=== PATIENT | male | born 1990 | race Caucasian/White ===

== ENCOUNTER 2020-11-16 17:16 | Emergency (ER) | payer OTHER ==
[2020-11-16 21:02] LABS: BASOPHIL 0.2 % (0-2); EOSINOPHIL 0.3 % (0-5); HCT 44.8 % (42.0-52.0); HGB 14.8 g/dl (13.2-18.0); LYMPHOCYTE 12.4 % (15-48); MCH 30.9 pg (25.0-31.0); MCV 93.5 fL (78.0-100.0); MONOCYTE 8.3 % (0-12); NEUTROPHIL 78.5 % (41-80); NRBC 0; PLT 352 K/uL (150-400); RBC 4.79 M/uL (4.70-6.00); RDW 12.7 % (11.5-14.0); WBC 17.2 K/uL (4.0-10.5)
[2020-11-16 22:26] LABS: BUN/CREAT RATIO (CALC) 9.6 RATIO; CREATININE 0.94 mg/dL (0.67-1.17); POTASSIUM 4.1 mmol/L (3.5-5.1)
[2020-11-16 22:34] LABS: LACTIC ACID 1.3 mmol/L (0.4-1.9)
[2020-11-16] MEDS ORDERED: AMOXICILLIN500 MG PO (23:06)
== END 2020-11-17 03:00 | disposition other institution (70) ==
LOC: FER 17:16
PROVIDERS: Nurse Practitioner Family
DX: K04.7 Periapical abscess without sinus (principal); Z23 Encounter for immunization; Z20.822 Contact with and (suspected) exposure to COVID-19
CPT/HCPCS: 36415; 70487; 80048; 83605; 84145; 85025; 90471; 90715; J1100; J2543; J7030; Q9967; U0002

== ENCOUNTER 2021-05-27 22:27 | Emergency (ER) | payer SELFPAY ==
[~2021-05-27 22:27] MED LIST: AMOXICILLIN500 MG PO
[2021-05-27] MEDS ORDERED: MEDROL 4MG DOSEP4 MG PO (23:12)
== END 2021-05-27 23:38 | disposition home or self-care (01) ==
LOC: FER 22:27
DX: R21 Rash and other nonspecific skin eruption (principal); F17.200 Nicotine dependence, unspecified, uncomplicated
CPT/HCPCS: 99282; J7512

== ENCOUNTER 2021-06-09 17:55 | Emergency (ER) | payer OTHER ==
[~2021-06-09 17:55] MED LIST changes: +MEDROL 4MG DOSEP4 MG PO
[2021-06-09] MEDS ORDERED: MOTRIN600 MG PO (19:49)
[2021-06-09] MEDS ORDERED: CLINDAMYCIN 15150 MG PO (19:49)
== END 2021-06-09 20:02 | disposition home or self-care (01) ==
LOC: FER 17:55
DX: K04.7 Periapical abscess without sinus (principal); K02.9 Dental caries, unspecified; I10 Essential (primary) hypertension; Z28.310 Unvaccinated for COVID-19
CPT/HCPCS: 99282; Q0163